=== PATIENT | female | born 1990 | race African-American/Black ===

== ENCOUNTER 2018-04-27 23:17 | Inpatient (IN) | payer OTHER ==
[2018-04-28 00:04] VITALS: BMI 28.2
[2018-04-28] MEDS ORDERED: NS / Oxytocin 40 units/1000ml 1,000 ML IV PRN (03:10)
[2018-04-28] MEDS ORDERED: Ibuprofen 800 MG TAB PO PRN (03:10)
[2018-04-28] MEDS ORDERED: Lidocaine 1% (PF) 30 ML VIAL SC PRN (03:10)
[2018-04-28] MEDS ORDERED: Butorphanol Tartrate 1 MG/ML VIAL SLOW IVP PRN (03:10)
[2018-04-28] MEDS ORDERED: Ondansetron HCl/PF 4 MG/2 ML Vial IVP PRN ×2 (03:10→14:35)
[2018-04-28] MEDS ORDERED: NS w/ Oxytocin 10 units 500 ML ONE (03:11)
[2018-04-28] MEDS ORDERED: NS w/ Oxytocin 10 units 500 ML IV SCH (03:15)
[2018-04-28] MEDS ORDERED: Lactated Ringer's 1,000 ML IV SCH (03:15)
[2018-04-28] MEDS ORDERED: DISCONTINUE ALL PREVIOUS NARCOTICS FS SCH (03:30)
[2018-04-28] MEDS ORDERED: Bupivacaine 0.5% 20 ML, fentaNYL Citrate/PF 400 MCG in Sodium Chloride 0.9% 72 ML EPIDURAL SCH (03:30)
--- NOTE | 2018-04-28 03:30 | PDOC.LDHP ---
Labor and Delivery H&P Chief complaint: contractions HPI: 27yo at 39+wk presents with painful ctx, in triage was having deep variables, late in presentation with approx 50% of contractions, resolved with fluid resuscitation. Current gestational age (weeks): 39 Due date: 04/29/18 Dating criteria: last menstrual period Grav: 3 Para: 2 Current complications: none Abnormal US findings: No Past Medical History: asthma Current medications: pre-henok vitamins Previous surgical history: none Allergies/Adverse Reactions: Allergies Allergy/AdvReac Type Severity Reaction Status Date / Time No Known Allergies Allergy Verified 04/27/18 23:59 Social history: none - Physical Exam Vital signs reviewed and normal: yes General: NAD Heart: RRR Lungs: CTAB Abdomen: gravid Extremeties: no edema FHT: category 1 (variable resolved and now cat 1) [place] contractions every: 4min - Vaginal Exam cm dilated: 4 Effacement: 75% Station: -2 - OB Labs RH: positive Antibody Screen: negative HIV: negative RPR: negative HEPSAg: negative 1 hour GCT: unknown (not done, accuchecks negative) GBS: negative Urine drug screen: not done Rubella: immune - Assessment L&D Assessment: medically indicated induction - Plan Plan: admit to L&D, labor augmentation if indicated, informed consent obtained, anesthesia consult for pain management
[2018-04-28 05:24] LABS: Hemoglobin 10.6 g/dL (12.0-16.0); Mean Corpuscular HGB CONC 33.2 g/dL (32.0-36.0); Mean Corpuscular Hemoglobin 27.5 pg (27.0-31.0); Mean Corpuscular Volume 82.8 fL (78.0-98.0); Mean Platelet Volume 9.4 fL (7.4-10.4); Platelet Count 180 thou/uL (130-400); RBC Distribution Width 13.2 % (11.5-14.5); Red Blood Cell (RBC) Count 3.86 mill/uL (4.20-5.40)
[2018-04-28] MEDS: Lactated Ringer's 1,000 ML IV SCH (05:48)
[2018-04-28 05:50] LABS: HBSAg Index 0.29 S/CO (0-0.99); Hep B Surf Ag Non-Reactive S/CO (NonReactive)
[2018-04-28 06:02] LABS: Syphilis Antibody Nonreactive (Nonreactive); Syphilis Antibody Index 0.09 S/CO (<1.00 Non-Reactive)
--- NOTE | 2018-04-28 11:53 | PDOC.OPDEL ---
OB Operative/Delivery Note Delivery Dr/Surgeon: Piero Assist: n/a Pre-Delivery Diagnosis: medically indicated induction Procedure/Post Delivery Dx: spontaneous vaginal delivery Weeks gestation: 39 Anesthesia: epidural - Findings A Sex: male - 1 min: 8 - 5 min: 9 - Additional Findings/Plan Placenta delivered: spontaneous Repaired Obstetrical Laceration: 1st degree (hemostatic not reparied) Estimated blood loss: 92ml Post delivery plan: routine recovery
[2018-04-28] MEDS ORDERED: Preparation H Ointment 28 GM TUBE PR PRN (14:35)
[2018-04-28] MEDS ORDERED: diphenhydrAMINE 25 MG CAP PO PRN (14:35)
[2018-04-28] MEDS ORDERED: Acetaminophen/Codeine 30-300mg Tablet PO PRN ×2 (14:35)
[2018-04-28] MEDS ORDERED: NS / Oxytocin 40 units/1000ml 1,000 ML IV SCH (14:35)
[2018-04-28] MEDS ORDERED: Bisacodyl 10 MG SUPP PR PRN (14:35)
[2018-04-28] MEDS ORDERED: Benzocaine/Menthol 20-0.5% 60 ML CAN TOP PRN (14:35)
[2018-04-28] MEDS ORDERED: Milk Of Magnesia 30 ML UDCUP PO PRN (14:35)
[2018-04-28] MEDS ORDERED: Promethazine HCl 25 MG/ML VIAL IM PRN (14:35)
[2018-04-28] MEDS ORDERED: Adacel (T-DAP) 0.5 ML VIAL IM ONE (14:35)
[2018-04-28] MEDS ORDERED: Lanolin Ointment 7 GM TUBE TOP PRN (14:35)
[2018-04-28] MEDS: Ibuprofen 800 MG TAB PO SCH ×2 (14:57→23:58)
[2018-04-28] MEDS: Ferrous Sulfate 325 MG TAB PO SCH (17:53)
[2018-04-28] MEDS: Docusate Calcium (SURFAK) 240 MG CAP PO SCH (22:08)
--- NOTE | 2018-04-29 07:39 | PDOC.PP ---
Post Progress Note Post Day #: 1 PO intake tolerated: yes Flatus: yes Ambulation: yes Vital Signs (12 hours) Temp Pulse Resp BP 04/29/18 00:00 98.2 F 69 18 100/52 L 04/28/18 20:00 98.0 F 59 L 16 Weight Weight 175 lb - Physical Examination General: NAD Cardiovascular: RRR Respiratory: non-labored breathing Abdominal: no distention, appropriately TTP Fundus firm & at: umb-2 Skin: no rash Neurological: no gross focal deficits Psychiatric: normal affect Result Diagrams: 04/28/18 02:00 Additional Labs: Post Labs Blood Type A POSITIVE 04/28/18 02:00 Hep Bs Antigen Non-Reactive S/CO (NonReactive) 04/28/18 02:00 - Assessment/Plan PPD1 s/p TSVD\ VSSAF Doing well lochia appropriate Rh pos RImm DC home FU 6wk
[2018-04-29] MEDS: Docusate Calcium (SURFAK) 240 MG CAP PO SCH (07:59)
[2018-04-29] MEDS: Ferrous Sulfate 325 MG TAB PO SCH ×2 (07:59→13:21)
[2018-04-29] MEDS: Ibuprofen 800 MG TAB PO SCH ×2 (07:59→15:06)
[2018-04-29] MEDS: Lactated Ringer's 1,000 ML IV SCH (08:03)
[2018-04-29] MEDS ORDERED: Prenatal Vitamin 1 TAB PO SCH (09:00)
[2018-04-29 12:14] VITALS: BP 116/68; TEMP 98.3
== END 2018-04-29 16:00 | disposition home or self-care (01) | DRG 775 ==
LOC: L&D/OP 23:17 → L&D 04-28 02:51 → 3SW 04-28 14:01
PROVIDERS: ADMIT Obstetrics & Gynecology; ATTEND Student in an Organized Health Care Education/Training Program
PROC: 10E0XZZ Delivery of Products of Conception, External Approach (ICD-10-PCS; principal; 2018-04-28)
PROC: 3E033VJ Introduction of Other Hormone into Peripheral Vein, Percutaneous Approach (ICD-10-PCS; 2018-04-28)
DX: O76 Abnormality in fetal heart rate and rhythm complicating labor and delivery (principal); O70.0 First degree perineal laceration during delivery; Z3A.39 39 weeks gestation of pregnancy; Z37.0 Single live birth
CPT/HCPCS: 51702; 76815; 85027; 86780; 86850; 86900; 86901; 87340; 99285; J0595; J2001; J3010; J3490; J7050

== ENCOUNTER 2019-08-09 06:25 | Inpatient (IN) | payer OTHER ==
[2019-08-09 07:13] VITALS: BMI 29.9
[2019-08-09] MEDS ORDERED: FLU VACC QS2019-20(6MOS UP)/PF 60 MCG/0.5 ML SYRINGE IM ONE (07:30)
[2019-08-09] MEDS ORDERED: Ondansetron PF 4 MG/2 ML Vial IVP PRN ×2 (07:55→10:17)
[2019-08-09] MEDS ORDERED: Ibuprofen 800 MG TAB PO PRN (07:55)
[2019-08-09] MEDS ORDERED: Lidocaine 1% (PF) 30 ML VIAL SC PRN (07:55)
[2019-08-09] MEDS ORDERED: Butorphanol Tartrate 1 MG/ML VIAL SLOW IVP PRN (07:55)
[2019-08-09] MEDS ORDERED: hydrALAZINE 20 MG/ML VIAL SLOW IVP PRN ×2 (07:55→15:34)
[2019-08-09] MEDS ORDERED: Acetaminophen/Codeine 30-300mg Tablet PO PRN ×2 (07:55)
[2019-08-09] MEDS ORDERED: Promethazine HCl 25 MG/ML VIAL IM PRN ×2 (07:55→10:17)
[2019-08-09] MEDS ORDERED: NS / Oxytocin 40 units/1000ml 1,000 ML IV PRN (07:55)
[2019-08-09] MEDS ORDERED: Lactated Ringer's 1,000 ML IV SCH (08:00)
--- NOTE | 2019-08-09 08:00 | PDOC.LDHP ---
Labor and Delivery H&P Chief complaint: contractions HPI: 29 yo BF c/o regular UCs since early this AM. Denies SROM or bleeding. Current gestational age (weeks): 39 Due date: 08/13/19 Dating criteria: last menstrual period Grav: 4 Para: 3 Current complications: none Abnormal US findings: No Current medications: pre- vitamins Previous surgical history: none Allergies/Adverse Reactions: Allergies Allergy/AdvReac Type Severity Reaction Status Date / Time No Known Allergies Allergy Verified 04/27/18 23:59 Social history: none - Physical Exam Vital signs reviewed and normal: yes General: breathing through contractions Heart: RRR Lungs: CTAB Abdomen: gravid Extremeties: trace edema FHT: category 1 [place] contractions every: q 3-5 mins. - Vaginal Exam cm dilated: 4 Effacement: 75% Station: -1 - OB Labs GBS: negative - Assessment L&D Assessment: term patient in labor - Plan Plan: admit to L&D, informed consent obtained, other (Keyonna Light notified)
[2019-08-09] MEDS: Lactated Ringer's 1,000 ML IV SCH ×3 (09:22→10:51)
[2019-08-09] MEDS ORDERED: Fentanyl 4 mcg/Bup 0.1% Cadd 100 ML ONE (09:32)
[2019-08-09 09:44] LABS: Hemoglobin 12.2 g/dL (12.0-16.0); Mean Corpuscular Hemoglobin 26.9 pg (27.0-31.0); Mean Platelet Volume 10.3 fL (7.4-10.4); Platelet Count 209 thou/uL (130-400); RBC Distribution Width 13.2 % (11.5-14.5); Red Blood Cell (RBC) Count 4.54 mill/uL (4.20-5.40); White Blood Cell (WBC) Count 9.9 thou/uL (4.8-10.8)
[2019-08-09 10:17] LABS: Syphilis Antibody Nonreactive (Nonreactive); Syphilis Antibody Index 0.11 S/CO (<1.00 Non-Reactive)
[2019-08-09] MEDS ORDERED: ePHEDrine/0.9% NaCl/PF SYRINGE 50 mg/10 ml SLOW IVP PRN (10:17)
[2019-08-09] MEDS ORDERED: Acetaminophen 325 MG TAB PO PRN (10:17)
[2019-08-09] MEDS ORDERED: Lactated Ringer's 500 ML IV PRN (10:17)
[2019-08-09] MEDS ORDERED: Naloxone HCl 0.4 mg/ml Vial IVP PRN ×2 (10:17)
[2019-08-09] MEDS ORDERED: diphenhydrAMINE 50 MG/ML VIAL IVP PRN (10:17)
[2019-08-09 10:22] LABS: Hep B Surf Ag Non-Reactive S/CO (NonReactive)
[2019-08-09] MEDS ORDERED: Communication Order-Pharmacy FS SCH (10:30)
[2019-08-09] MEDS ORDERED: Fentanyl 4 mcg/Bupivacaine 0.1% Cassette 100 ML EPIDURAL SCH (10:30)
[2019-08-09] MEDS ORDERED: NS / Oxytocin 40 units/1000ml 1,000 ML ONE (10:41)
[2019-08-09] MEDS ORDERED: Lidocaine 1% (PF) 30 ML VIAL ONE (10:41)
--- NOTE | 2019-08-09 13:49 | PDOC.OPDEL ---
OB Operative/Delivery Note Delivery Dr/Surgeon: Light. Geovani GAMEZ Pre-Delivery Diagnosis: active labor Procedure/Post Delivery Dx: spontaneous vaginal delivery Weeks gestation: 39 (3 days) Anesthesia: epidural - Findings A Sex: male Weight: 6 lb 10 oz - 1 min: 9 - 5 min: 9 - Additional Findings/Plan Placenta delivered: spontaneous Repaired Obstetrical Laceration: none Estimated blood loss: 25mL Compilations/Other Findings: Deep variables prior to delivery with immanent delivery.
[2019-08-09] MEDS ORDERED: Adacel (T-DAP) 0.5 ML SYRINGE IM ONE (15:34)
[2019-08-09] MEDS ORDERED: HYDROcodone/Acetaminophen 5/325 mg Tablet PO PRN ×2 (15:34)
[2019-08-09] MEDS ORDERED: Milk Of Magnesia 30 ML UDCUP PO PRN (15:34)
[2019-08-09] MEDS ORDERED: Methylergonovine 0.2 MG/ML VIAL IM PRN (15:34)
[2019-08-09] MEDS ORDERED: Misoprostol 200 MCG TAB VAG PRN (15:34)
[2019-08-09] MEDS ORDERED: NS / Oxytocin 40 units/1000ml 1,000 ML IV SCH (15:34)
[2019-08-09] MEDS ORDERED: Measles/Mumps/Rubella 10 MCG/0.5 ML VIAL SC ONE (15:34)
[2019-08-09] MEDS ORDERED: Bisacodyl 10 MG SUPP PR PRN (15:34)
[2019-08-09] MEDS ORDERED: Benzocaine-Menthol 82.5 ML CAN TOP PRN (15:34)
[2019-08-09] MEDS ORDERED: Ibuprofen 800 MG TAB PO SCH (16:00)
[2019-08-09] MEDS: Ferrous Sulfate 325 MG TAB PO SCH (18:02)
[2019-08-09] MEDS: Ibuprofen 800 MG TAB PO SCH (21:29)
[2019-08-09] MEDS: Docusate Calcium (SURFAK) 240 MG CAP PO SCH (21:29)
[2019-08-10] MEDS: Ibuprofen 800 MG TAB PO SCH ×2 (04:58→14:22)
[2019-08-10] MEDS ORDERED: Prenatal Vitamin 1 TAB PO SCH (09:00)
[2019-08-10] MEDS: Docusate Calcium (SURFAK) 240 MG CAP PO SCH (10:05)
[2019-08-10] MEDS: Ferrous Sulfate 325 MG TAB PO SCH (10:05)
[2019-08-10 14:31] VITALS: BP 109/67; TEMP 98.7
== END 2019-08-10 16:25 | disposition home or self-care (01) | DRG 807 ==
LOC: L&D/OP 06:25 → L&D 08:05 → 3SW 16:36
PROVIDERS: ADMIT Obstetrics & Gynecology; ATTEND Obstetrics & Gynecology
PROC: 10E0XZZ Delivery of Products of Conception, External Approach (ICD-10-PCS; principal; 2019-08-09)
PROC: 10907ZC Drainage of Amniotic Fluid, Therapeutic from Products of Conception, Via Natural or Artificial Opening (ICD-10-PCS; 2019-08-09)
DX: O80 Encounter for full-term uncomplicated delivery (principal); Z37.0 Single live birth; Z3A.39 39 weeks gestation of pregnancy
CPT/HCPCS: 36415; 85027; 86780; 86850; 86900; 86901; 87340; J2001